=== PATIENT | male | born 1975 | race Caucasian/White ===

== ENCOUNTER 2020-04-06 18:12 | Emergency (ER) | payer MEDICARE, MEDICAID ==
[2020-04-06] MEDS ORDERED: Ondansetron 4 MG/2 ML SDV IVPUSH ONE (18:46)
[2020-04-06] MEDS ORDERED: Tamsulosin 0.4 MG Cap.ER PO STA (18:46)
[2020-04-06] MEDS ORDERED: Sodium Chloride 0.9% 1,000 ML IV ONE (18:47)
--- NOTE | 2020-04-06 18:55 | EDM.PDOC ---
ED HPI GENERAL MEDICAL PROBLEM - General Chief Complaint: Back Pain or Injury Stated Complaint: BACK PAIN NAUSEA Time Seen by Provider: 04/06/20 18:38 Source of Information: Reports: Patient, RN Notes Reviewed History Limitations: Reports: No Limitations - History of Present Illness INITIAL COMMENTS - FREE TEXT/NARRATIVE: Patient is a 44-year-old male who presents to the ED for evaluation of a sudden onset left flank pain. Patient notes he was at home, working around the house and being active all day, and he had a very sudden onset of left flank pain at around 4:30 PM. He notes that this does wrap around to his left groin or abdomen. Patient states that he is very nauseous with this due to the pain, but he has not had any vomiting. Patient does appreciate some urinary urgency, and some chills or the sweats but no documented fever. Patient's not felt a pain like this before ever, and states this is a very sharp stabbing pain, he did not take any pain medications at home for this. He denies any other issues with kidney stones and/or prostate issues. He further states he does not have a primary care provider. Treatments ASSISTED LIVING DIRECTOR: Reports: Other (see below) Other Treatments ASSISTED LIVING DIRECTOR: none Left Flank Pain Score (Numeric/FACES): 10 - Related Data Allergies Allergy/AdvReac Type Severity Reaction Status Date / Time No Known Allergies Allergy Verified 04/06/20 18:26 Home Meds: Home Meds Acetaminophen/HYDROcodone [Redfield 325-5 MG] 1 tab PO Q6H PRN #15 tablet 04/06/20 [Rx] Ondansetron [Zofran ODT] 4 mg PO Q8H PRN #15 tab.dis 04/06/20 [Rx] Past Medical History - Past Surgical History GI Surgical History: Reports: Appendectomy Social & Family History - Tobacco Use Smoking Status *Q: Never Smoker - Caffeine Use Caffeine Use: Reports: Coffee - Recreational Drug Use Recreational Drug Use: No ED ROS GENERAL - Review of Systems Review Of Systems: Comprehensive ROS is negative, except as noted in HPI. ED EXAM, RENAL/ - Physical Exam Exam: See Below Exam Limited By: No Limitations General Appearance: Alert, WD/WN, No Apparent Distress, Anxious (Patient does seem to be in a moderate amount of pain, he is moving about the room, and really cannot find a comfortable place to sit.) Eye Exam: Bilateral Eye: EOMI, Normal Inspection, PERRL Ears: Normal External Exam Nose: Normal Inspection Throat/Mouth: Normal Inspection Head: Atraumatic, Normocephalic Neck: Normal Inspection Respiratory/Chest: No Respiratory Distress, Lungs Clear, Normal Breath Sounds, No Accessory Muscle Use, Chest Non-Tender Cardiovascular: Normal Peripheral Pulses, Regular Rate, Rhythm, No Murmur GI/Abdominal: Normal Bowel Sounds, Soft, Non-Tender, No Distention, No Mass Back Exam: Normal Inspection, Full Range of Motion, CVA Tenderness (L) (mild). No: CVA Tenderness (R) Extremities: Normal Inspection, Normal Capillary Refill Neurological: Alert, Oriented, Normal Cognition, No Motor/Sensory Deficits Psychiatric: Normal Affect, Normal Mood Skin Exam: Warm, Dry, Intact, Normal Color, No Rash Course - Vital Signs Last Recorded V/S: Last Vital Signs Temp 97.2 F 04/06/20 18:22 Pulse 77 04/06/20 18:22 Resp 20 04/06/20 18:22 BP 149/98 H 04/06/20 18:22 Pulse Ox 100 04/06/20 18:22 - Orders/Labs/Meds Orders: Active Orders 24 hr Category Date Time Status Peripheral IV Care [RC] . DIRECTED Care 04/06/20 19:09 Ordered Strain Urine [RC] ASDIRECTED Care 04/06/20 18:46 Ordered Sodium Chloride 0.9% [Saline Flush] Med 04/06/20 19:09 Ordered 10 ml FLUSH ASDIRECTED PRN Peripheral IV Insertion Adult [OM.PC] Stat Oth 04/06/20 19:09 Ordered Medication Orders Sodium Chloride (Saline Flush) 10 ml FLUSH ASDIRECTED PRN PRN Reason: Keep Vein Open Last Admin: 04/06/20 19:17 Dose: 10 ml Documented by: NAOMY Labs: Laboratory Tests 04/06/20 04/06/20 04/06/20 Range/Units 18:35 18:35 18:35 WBC 5.54 (4.23-9.07) K/mm3 RBC 4.78 (4.63-6.08) M/mm3 Hgb 14.7 (13.7-17.5) gm/dl Hct 42.9 (40.1-51.0) % MCV 89.7 (79.0-92.2) fl MCH 30.8 (25.7-32.2) pg MCHC 34.3 (32.2-35.5) g/dl RDW Std Deviation 42.3 (35.1-43.9) fL Plt Count 233 (163-337) K/mm3 MPV 9.2 L (9.4-12.3) fl Neut % (Auto) 66.8 (34.0-67.9) % Lymph % (Auto) 22.4 (21.8-53.1) % [place] % (Auto) 6.5 (5.3-12.2) % Eos % (Auto) 2.7 (0.8-7.0) Baso % (Auto) 1.4 H (0.1-1.2) % Neut # (Auto) 3.70 (1.78-5.38) K/mm3 Lymph # (Auto) 1.24 L (1.32-3.57) K/mm3 [place] # (Auto) 0.36 (0.30-0.82) K/mm3 Eos # (Auto) 0.15 (0.04-0.54) K/mm3 Baso # (Auto) 0.08 (0.01-0.08) K/mm3 Manual Slide Review Normal smear Sodium 141 (136-145) mEq/L Potassium 3.4 L (3.5-5.1) mEq/L Chloride 102 (98-107) mEq/L Carbon Dioxide 25 (21-32) mEq/L Anion Gap 17.4 H (5-15) BUN 17 (7-18) mg/dL Creatinine 0.9 (0.7-1.3) mg/dL Est Cr Clr Drug Dosing 97.44 mL/min Estimated GFR (MDRD) > 60 (>60) mL/min BUN/Creatinine Ratio 18.9 H (14-18) Glucose 112 H (74-106) mg/dL Calcium 9.2 (8.5-10.1) mg/dL Total Bilirubin 0.7 (0.2-1.0) mg/dL AST 26 (15-37) U/L ALT 35 (16-63) U/L Alkaline Phosphatase 45 L (46-116) U/L Total Protein 7.4 (6.4-8.2) g/dl Albumin 4.4 (3.4-5.0) g/dl Globulin 3.0 gm/dL Albumin/Globulin Ratio 1.5 (1-2) Urine Color Yellow (Yellow) Urine Appearance Clear (Clear) Urine pH 5.0 (5.0-8.0) Ur Specific [place] > or = 1.030 (1.005-1.030) Urine Protein Negative (Negative) Urine Glucose (UA) Negative (Negative) Urine Ketones 2+ H (Negative) Urine Occult Blood Negative (Negative) Urine Nitrite Negative (Negative) Urine Bilirubin 1+ H (Negative) Urine Urobilinogen 0.2 (0.2-1.0) Ur Leukocyte Esterase Negative (Negative) Urine RBC 0-5 (0-5) /hpf Urine WBC Not seen (0-5) /hpf Ur Squamous Epith Cells 0-5 (0-5) /hpf Calcium Oxalate Crystal Moderate H (NONE) Urine Bacteria Not seen (FEW) /hpf Urine Mucus Not seen (FEW) /hpf Meds: Medications Generic Name Dose Route Start Last Admin Trade Name Freq PRN Reason Stop Dose Admin Sodium Chloride 10 ml 04/06/20 19:09 04/06/20 19:17 Saline Flush FLUSH 10 ml ASDIRECTED PRN Administration Keep Vein Open Discontinued Medications Generic Name Dose Route Start Last Admin Trade Name Freq PRN Reason Stop Dose Admin Hydromorphone HCl 1 mg 04/06/20 18:46 04/06/20 19:15 Dilaudid IVPUSH 04/06/20 18:47 0.5 mg ONETIME STA Administration Sodium Chloride 1,000 mls @ 999 mls/hr 04/06/20 18:47 04/06/20 19:17 Normal Saline IV 04/06/20 19:47 999 mls/hr ASDIRECTED ONE Administration Ondansetron HCl 4 mg 04/06/20 18:46 04/06/20 19:13 Zofran IVPUSH 04/06/20 18:47 4 mg ONETIME ONE Administration Tamsulosin HCl 0.4 mg 04/06/20 18:46 04/06/20 19:17 Flomax PO 04/06/20 18:47 0.4 mg ONETIME STA Administration - Re-Assessments/Exams Free Text/Narrative Re-Assessment/Exam: 04/06/20 18:56 Patient presents to the ED for the evaluation of his urinary urgency, and flank pain. Will get urinalysis, abdomen pelvis CT, give him some fluids, check a CBC and CMP, he will get 1 mg of Dilaudid for pain management and 4 mg Zofran for nausea management. 04/06/20 19:[address] is done, and suspicious for obstructing stone within the distal left ureter measuring 2 to 3 mm. This would be where the patient is having pain. He did get a dose of Flomax to begin with, I am certain that the fluids, pain medication should help him, hopefully he will pass this with out issues. Departure - Departure Time of Disposition: 20:11 Disposition: Home, Self-Care 01 Condition: Good Clinical Impression: Kidney stone on left side - Discharge Information *PRESCRIPTION DRUG MONITORING PROGRAM REVIEWED*: Yes *COPY OF PRESCRIPTION DRUG MONITORING REPORT IN PATIENT [facility]SCAR: No Prescriptions: Acetaminophen/HYDROcodone [Redfield 325-5 MG] 1 tab PO Q6H PRN #15 tablet PRN Reason: Pain Ondansetron [Zofran ODT] 4 mg PO Q8H PRN #15 tab.dis PRN Reason: Nausea Instructions: Dietary Guidelines to Help Prevent Kidney Stones Forms: ED Department Discharge Additional Instructions: You were evaluated in the ER today for your left flank pain. A CT was done at this ER visit, this demonstrated a 2 to 3 mm stone within the distal left ureter. You have been given a strainer, please use every time you use the bathroom to make sure that the kidney stone has passed. Recommend that you increase your oral fluid intake to try to help the stone pass. You have been given a few tablets of pain medication, please take as prescribed. These medications are highly addictive, please take as few as you need to. These medications also may cause constipation, please take a stool softener like MiraLAX while taking these medications. You were also given a prescription for nausea medications, please take 1 tab dissolvable under your tongue every 8 hours as needed for further nausea. If your pain is not much better in a week's time, you may need to follow up with your primary care physician, for a possible urology referral. Please return to the ED if your symptoms change or worsen. Sepsis Event Note (ED) - Evaluation Sepsis Screening Result: No Definite Risk - Focused Exam Vital Signs: Vital Signs Temp Pulse Resp BP Pulse Ox 04/06/20 18:22 97.2 F 77 20 149/98 H 100 - My Orders Last 24 Hours: My Active Orders 04/06/20 18:46 Strain Urine [RC] ASDIRECTED 04/06/20 19:09 Peripheral IV Care [RC] . DIRECTED Sodium Chloride 0.9% [Saline Flush] 10 ml FLUSH ASDIRECTED PRN Peripheral IV Insertion Adult [OM.PC] Stat - Assessment/Plan Last 24 Hours: My Active Orders 04/06/20 18:46 Strain Urine [RC] ASDIRECTED 04/06/20 19:09 Peripheral IV Care [RC] . DIRECTED Sodium Chloride 0.9% [Saline Flush] 10 ml FLUSH ASDIRECTED PRN Peripheral IV Insertion Adult [OM.PC] Stat
[2020-04-06] MEDS ORDERED: Sodium Chloride 0.9% 10 ML Syringe FLUSH PRN (19:09)
[2020-04-06] MEDS: HYDROmorphone 1 MG/ML Syringe IVPUSH STA ×2 (19:15→20:25)
--- NOTE | 2020-04-06 19:25 | CT ---
CT abdomen and pelvis Technique: Multiple axial sections were obtained from above the dome of the diaphragm inferiorly through the pubic symphysis. Intravenous and oral contrast not utilized. Study has been performed as a ureteral stone protocol. Findings: Left ureter is mildly prominent. There appears to be a small obstructing stone within the distal right ureter at the UVJ measuring between 2.0 and 3.0 mm. No other ureteral calculi are seen. No renal calculi are noted. Visualized lung bases show nothing acute. Liver contains no focal abnormality. Spleen size is normal. Adrenal glands show no discrete nodule. Pancreas not optimally seen. Aorta shows no aneurysm. Gallbladder contains no calcified gallstones. No retroperitoneal adenopathy or mesenteric abnormalities are seen. No pelvic mass or adenopathy is seen. No free fluid or inflammatory change is seen. Appendix not visualized with certainty. Bone window settings shows scoliosis within the spine with no acute osseous finding. Impression: 1. Findings suspicious for an obstructing stone within the distal left ureter measuring 2-3 mm. Please correlate that patient has left-sided symptoms. 2. No other abnormality is definitely appreciated on noncontrast CT study of the abdomen and pelvis. Diagnostic code #3 This report was dictated in MDT
== END 2020-04-06 20:45 | disposition home or self-care (01) ==
LOC: JD.ED 18:12
DX: N20.0 Calculus of kidney (principal); Z90.49 Acquired absence of other specified parts of digestive tract
CPT/HCPCS: 36415; 74176; 80053; 81001; 85025; 96374; 96375; 96376; 99284; A9270; J1170; J2405; J7030

== ENCOUNTER 2022-05-04 10:36 | Emergency (ER) | payer MEDICARE, MEDICAID ==
[2022-05-04] MEDS ORDERED: Lidocaine 1% 10 ML MDV INJECT ONE (11:02)
[2022-05-04] MEDS ORDERED: Diphtheria,Pertussis(Acell),Tetanus Vaccine 0.5 ML Syringe IM ONE (11:02)
[2022-05-04] MEDS ORDERED: Bupivacaine 0.5%/EPINEPHrine 1:200,000 30 ML SDV INJECT ONE (11:03)
[2022-05-04] MEDS ORDERED: Bupivacaine 0.5% 10 ML SDV INJECT ONE (11:07)
[2022-05-04] MEDS ORDERED: Cephalexin 500 MG Cap PO ONE (11:32)
== END 2022-05-04 12:08 | disposition home or self-care (01) ==
LOC: JD.ED 10:36
DX: S61.316A Laceration without foreign body of right little finger with damage to nail, initial encounter (principal); Z23 Encounter for immunization; W26.8XXA Contact with other sharp object(s), not elsewhere classified, initial encounter
CPT/HCPCS: 12002; 73140; 90471; 90715; 99283; A9270; J3490